=== PATIENT | female | born 1950 | race Caucasian/White ===

== ENCOUNTER 2017-03-20 14:00 | Outpatient (RCR) ==
[2013-03-05 17:57] VITALS: BMI 30.4
--- NOTE | 2017-03-17 16:04 | RS.OPPTEV2 ---
Date of Note: 03/16/17 Visit #: 1 Date of Evaluation: 03/16/17 Payer Source: MEDICARE Treatment Diagnosis: Plantar Fasciits History of Condition/Mechanism of Injury:: Patient reports having plantar fasciits in both feet off and on for two years. States the left foot is doing well, right now. She has had an injection in the right foot, approximately 10 weeks ago. She has also had laser treatment, has performed heelcord and HS stretching, and has used a frozen water bottle to the bottom of the foot. She has had Power Step orthotics in her shoes for over a year. She has been using a Plantar Fasciitis Posterior Night Splint for ~ 5 weeks. Prior Level of Function.....Patient was independent with: ADL's, Self Care, Caregiving, Ambulation/Mobility, Community Integration/Access Functional Limitations: Standing, Ambulation, Community Access/Integration Current Subjective/complaints:: Patient reports right foot pain. States she has been using a night splint and she is waking up due to discomfort. She has been using it for about five weeks, and initially felt like it was helping. Reports states the injection in the right foot helped for approximately two weeks. She has performed heelcord and HS stretching, but states she may not be performing them enough. Reports lateral foot pain for the last few weeks. States left foot was found to have a bone spur, but the right foot does not. *Precautions: ALLERGIC TO ADHESIVES Medical History Medical History: Hypertension, Cancer (right eye muscles) Surgical History: Hysterectomy Surgical History Comments:: hammer toe repair left foot Smoking Status: Never smoker Hx Home Medications: meloxicam, metoprolol, montelukast, olmesartan medoxomil Patient's Goals: Her goal is to get relief of right foot pain. Pain Assessment - Pain Description Pain Location: plantar aspect of right foot Current Pain Intensity: 4/10 Worst Pain Intensity: 8/10 Functional Outcome Measure LE Functional Scale: 62 (62/80=22.5% impairment) - G Codes & Severity Modifier G Codes & Modifier: Mob current CJ. Mob goal CH Source of G Code score: LE Functional scale Observation - Observation Inspection: Right presents no bruising, scar, obvious swelling. Demonstrates swelling in the area of malleoli of bilateral LE's as socks leave impression upon removal. Gait - Gait Pattern Gait Comments: Patient ambulates independently without an assistive device with decreased heel strike on the right LE and decreased stance phase on the right. - Left Ankle ROM Comments: Left DF 5-10 degrees,with full knee extension. All else of left ankle WFL's. - Right Ankle ROM Comments: Left DF 5 degrees, with full knee extension. All else of ankle WFL's. - Left Ankle Strength Left Dorsiflexion: 5 Normal Left Plantar flexion: 5 Normal Left Eversion: 5 Normal Left Inversion: 5 Normal - Right Ankle Strength Right Dorsiflexion: 5 Normal Right Plantarflexion: 5 Normal Right Eversion: 5 Normal Right Inversion: 5 Normal Palpation Comments:: Tenderness along the medial border of the plantar fascia at the insertion site at the plantar aspect of the calcaneus. Sensation - Sensation Right Lower Extremity: Intact/Normal Left Lower Extremity: Intact/Normal Additional Comments: Additional Comments: Demonstrates optimal HS flexibility. - Treatment Modality: Ultrasound Parameters/Method Applied: 1.5 w/cm2 continuous X 8 mins to plantar fascia and plantar aspect of calcaneous. Patient Position: Sitting (w/ legs elevated on stool) Interventions - Exercise/Activities/Manual Therapy Exercises/Activities: Instructed in plantar fascia, gastroc, and soleus stretch for HEP. Advised to adjust the night splint to have minimal stretch on the ankle into DF to avoid discomfort. Manual Therapy: DTM to plantar fascia along with stretching to plantar fascia and heelcord. Total minutes of Manual Therapy: X 7-8 mins - Charges Total Direct Minutes: 60 mins Total Treatment Time: 60 mins Procedures billed for this date of service:: KVNG MCWILLIAMS, Assessment Assessment: Patient presents with diagnosis of bilateral Plantar Fasciitis. She reports right foot is priority at this time, left foot is doing better. She reports difficulty walking and standing due to right foot pain. She demonstrates decreased flexibility in right DF. Also has recent onset of lateral forefoot pain in the right foot. She demonstrates potential to benefit from stretching, manual therapy, and modalities to decrease friction on the plantar fascia and ultimately decrease her pain. Patient Education: Education of diagnosis, Body/Joint mechanics, Home Exercise Program, Home Safety, Activity Modification, Education of Plan of Care Rehab Potential: Good Short Term Goals Goal #1: Pt independent and compliant with HEP. Goal to be met by: 03/31/17 Goal #2: Right ankle DF 10 with full knee extension. Goal to be met by: 03/31/17 Goal #3: Pt will ambulate short distances with good heelstrike on right LE. Goal to be met by: 03/31/17 Correction Goals Goal #1: Pt I with HEP and home mangement of symptoms. Goal to be met by: 05/06/17 Goal #2: Score on LE functional scale improved to 72/80. Goal to be met by: 05/06/17 Goal #3: Pt able to amb. community distances with minimal right foot pain. Goal to be met by: 05/06/17 Plan - Treatment to be Provided Procedures: Therapeutic Exercises, Therapeutic Activity, Manual Therapy, Patient Education Modalities: Ultrasound/Phonophoresis, Class IV Laser, Cryotherapy, Hot Packs - Treatment Plan Frequency: 3 X week Duration: 4 weeks ORDER # VISITS AND/OR THROUGH DATE: 05/06/17 - Treatment Code (1) Right foot pain Comments: M79.671 (2) Plantar fasciitis Comments: M72.2
--- NOTE | 2017-03-20 16:27 | RS.OPPTDN ---
Subjective Date of Note: 03/17/17 Visit #: 2 Date of Evaluation: 03/16/17 Payer Source: MEDICARE Treatment Diagnosis: Plantar Fasciits Current Subjective/complaints:: Patient says that she is still having pain to the lateral side of the R foot. She says she altered her night splint so that it would not be so tight on her, which did relieve irritation. *Precautions: ALLERGIC TO ADHESIVES Pain Assessment - Pain Description Pain Location: plantar aspect of right foot Current Pain Intensity: 4/10 - Treatment Modality: Ultrasound Parameters/Method Applied: continuous @ 1.5 w/cm2 x 12 mins Treatment Area: R lateral foot and plantar fascia Patient Position: Supine - Heat/Cryotherapy Treatment: Hot Pack (over the R lateral and heel x 15 mins in supine) Interventions - Exercise/Activities/Manual Therapy Exercises/Activities: Passive stretching for R heel cords, great toe. Encouraged HEP, using frozen water bottle and/or heat. Patient educated in diagnosis and discussed lessening the stretch of her night splint to assist with better stretch with less pain. Explained consistent slow stretch over time. Total minutes of Exercise: 15 Manual Therapy: na - Charges Total Direct Minutes: 27 Total Treatment Time: 47 Procedures billed for this date of service:: hp, u/s, ex Assessment: Patient is able to experience relief today with modalities and stretches. No soreness with exercises and patient attentive to HEP and pain management at home. Patient Education: Education of diagnosis, Body/Joint mechanics, Home Exercise Program, Home Safety, Activity Modification, Education of Plan of Care Patient demonstrates compliance with HEP?: Yes Short Term Goals Goal #1: Pt independent and compliant with HEP. Goal to be met by: 03/31/17 Progress towards Goal:: Progressing Goal #2: Right ankle DF 10 with full knee extension. Goal to be met by: 03/31/17 Goal #3: Pt will ambulate short distances with good heelstrike on right LE. Goal to be met by: 03/31/17 Care Home Goals Goal #1: Pt I with HEP and home mangement of symptoms. Goal to be met by: 05/06/17 Goal #2: Score on LE functional scale improved to 72/80. Goal to be met by: 05/06/17 Goal #3: Pt able to amb. community distances with minimal right foot pain. Goal to be met by: 05/06/17 Plan PLAN OF CARE EXPIRES ON:: 05/06/17 ORDER # VISITS AND/OR THROUGH DATE: 05/06/17 PLAN: Progress Exercises Comments:: and modalities to improve pain level and gait
--- NOTE | 2017-03-20 16:41 | RS.OPPTDN ---
Subjective Date of Note: 03/20/17 Visit #: 3 Date of Evaluation: 03/16/17 Payer Source: MEDICARE Treatment Diagnosis: Plantar Fasciits Current Subjective/complaints:: Patient states her last session seemed to improve her foot pain. She does say she is having some swelling to the inside of her ankle. She reports tenderness here and to the lateral side of the foot. She did follow up with her referring MD today, which he is going to schedule her for a custom mold insert. She [facility] to get an OTC heel/arch support according to the "Dr. Owen's" assessment. *Precautions: ALLERGIC TO ADHESIVES Pain Assessment - Pain Description Pain Location: plantar aspect of right foot with swelling and tenderness to the medial aspect today Current Pain Intensity: Does not rate, but admits it is lower than last session - Treatment Modality: Ultrasound Parameters/Method Applied: Pulsed @ 0.6 w/cm2 20% x 12 mins to the R medial malleoli region, plantar fascia, heel, and along lateral edge of forefoot. Patient Position: Supine - Heat/Cryotherapy Treatment: Hot Pack (surrounding the lateral and plantar fascia x 20 mins supine ) Interventions - Exercise/Activities/Manual Therapy Exercises/Activities: Patient receives passive stretching for R heel cords, great toe. PROM for IV/EV. Encouraged ice for swelling to the medial aspect for home and discussed OTC orthotic. If it appears to help her symptoms, she wants to speak to MD about not pursuing custom mold due to expense. Total minutes of Exercise: 16 Manual Therapy: na - Charges Total Direct Minutes: 28 Total Treatment Time: 48 Procedures billed for this date of service:: hp, u/s, ex Assessment: Patient experiencing less general R ankle and foot pain at rest and with ambulation. She does present with slight swelling which is evident more so to the L medial malleoli region. Patient is able to herlinda exercise today despite swelling and express improved pain level when leaving department. Patient Education: Education of diagnosis, Body/Joint mechanics, Home Exercise Program, Home Safety, Activity Modification, Education of Plan of Care Patient demonstrates compliance with HEP?: Yes Short Term Goals Goal #1: Pt independent and compliant with HEP. Goal to be met by: 03/31/17 Progress towards Goal:: Progressing Goal #2: Right ankle DF 10 with full knee extension. Goal to be met by: 03/31/17 Progress towards Goal:: Progressing Goal #3: Pt will ambulate short distances with good heelstrike on right LE. Goal to be met by: 03/31/17 [facility]pc Goals Goal #1: Pt I with HEP and home mangement of symptoms. Goal to be met by: 05/06/17 Goal #2: Score on LE functional scale improved to 72/80. Goal to be met by: 05/06/17 Goal #3: Pt able to amb. community distances with minimal right foot pain. Goal to be met by: 05/06/17 Plan PLAN OF CARE EXPIRES ON:: 05/06/17 ORDER # VISITS AND/OR THROUGH DATE: 05/06/17 PLAN: Progress Exercises (and continue modalities)
--- NOTE | 2017-03-22 13:06 | RS.CXNS ---
Date of scheduled appointment: 03/22/17 Type: Cancel Reason for Cancel/NS: came in to inform us she is sick
== END 2017-03-23 ==
PROVIDERS: ATTEND Podiatrist
DX: M72.2 Plantar fascial fibromatosis (principal); D36.10 Benign neoplasm of peripheral nerves and autonomic nervous system, unspecified

== ENCOUNTER 2017-04-12 15:00 | Outpatient (RCR) ==
[2013-03-05 17:57] VITALS: BMI 30.4
--- NOTE | 2017-03-28 14:19 | RS.OPPTDN ---
Subjective Date of Note: 03/24/17 Visit #: 4 Date of Evaluation: 03/16/17 Payer Source: MEDICARE Treatment Diagnosis: Plantar Fasciits Current Subjective/complaints:: Patient says she is feeling better. Reporting less pain and performing stretches. Inquires how to stretch calves at home. *Precautions: ALLERGIC TO ADHESIVES Pain Assessment - Pain Description Pain Location: plantar aspect of right foot with swelling and tenderness to the medial aspect today Current Pain Intensity: Does not rate, but admits it is lower than last session - Treatment Modality: Ultrasound Parameters/Method Applied: continuous @ 1.5 w/cm2 x 6 mins, then pulsed @ 0.6 w/ cm2 x 6 mins to R heel, lateral arch and plantar fascia. Patient Position: Supine - Heat/Cryotherapy Treatment: Hot Pack (over the Lateral R foot and plantar fascia) Interventions - Exercise/Activities/Manual Therapy Exercises/Activities: Patient receives passive stretching for R heel cords, great toe. PROM for IV/EV. Began manual isometrics for PF/DF/IV/EV 2x5. Patient receives and demo standing gastroc and soleus stretching for home. Total minutes of Exercise: 13 Manual Therapy: na - Charges Total Direct Minutes: 25 Total Treatment Time: 45 Procedures billed for this date of service:: hp, u/s, ex Assessment: Patient admitting improved R foot pain through current treatment. She is able to demo correct stretching today for home heel cords and is able to herlinda manual resistance well. Patient should further improve with modalities to combate pain and therex to relieve tight tissues to carry over for home and use night time splint to further increase flexibility. Patient Education: Education of diagnosis, Body/Joint mechanics, Home Exercise Program, Home Safety, Activity Modification, Education of Plan of Care Patient demonstrates compliance with HEP?: Yes Short Term Goals Goal #1: Pt independent and compliant with HEP. Goal to be met by: 03/31/17 Progress towards Goal:: Progressing Goal #2: Right ankle DF 10 with full knee extension. Goal to be met by: 03/31/17 Progress towards Goal:: Progressing Goal #3: Pt will ambulate short distances with good heelstrike on right LE. Goal to be met by: 03/31/17 Mcfp Goals Goal #1: Pt I with HEP and home mangement of symptoms. Goal to be met by: 05/06/17 Goal #2: Score on LE functional scale improved to 72/80. Goal to be met by: 05/06/17 Goal #3: Pt able to amb. community distances with minimal right foot pain. Goal to be met by: 05/06/17 Plan PLAN OF CARE EXPIRES ON:: 05/06/17 ORDER # VISITS AND/OR THROUGH DATE: 05/06/17 PLAN: Progress Exercises
--- NOTE | 2017-03-28 14:45 | RS.OPPTDN ---
Subjective Date of Note: 03/28/17 Visit #: 5 Date of Evaluation: 03/16/17 Payer Source: MEDICARE Treatment Diagnosis: Plantar Fasciits Current Subjective/complaints:: Patient reports continued improvement with right heel pain. States she is working on HEP and is using orthotics in her shoes. *Precautions: ALLERGIC TO ADHESIVES Pain Assessment - Pain Description Pain Location: plantar aspect of right foot with tenderness at the medial aspect Current Pain Intensity: 2/10 - Treatment Modality: Ultrasound Parameters/Method Applied: [id number] at 0.6w/cm2 at 20% pulsed to the right heel, plantar surface, and behind lateral and medial malleoli prior to EX. Patient in supine. Patient Position: Supine - Heat/Cryotherapy Treatment: Hot Pack ([id number] to the right heel and along the achilles tendon prior to US and EX. Patient in supine. ) Interventions - Exercise/Activities/Manual Therapy Exercises/Activities: Patient receives passive stretching for R heel cords, great toe. PROM for IV/EV. Manual isometrics for PF, INV, and EV, multiple sets of 5reps. Reviewed standing gastroc and soleus stretching. Added standing heel cord stretch at step and ankle alphabet. Total minutes of Exercise: 15mins Manual Therapy: na HOME EXERCISE PROGRAM: Gastroc and soleus stretching in standing. Great toe flexor stretch. Isometric ankle df. Ankle alphabet. - Charges Total Direct Minutes: 27mins Total Treatment Time: 50mins Procedures billed for this date of service:: HP, US, EX Assessment: Patient reporting consistent progress with reduction in pain right heel. She is motivated to progress with HEP. Patient Education: Home Exercise Program Comments: Reviewed joint mechanics and patient given copies of new exercises. Patient demonstrates compliance with HEP?: Yes Short Term Goals Goal #1: Pt independent and compliant with HEP. Goal to be met by: 03/31/17 Progress towards Goal:: Progressing Goal #2: Right ankle DF 10 with full knee extension. Goal to be met by: 03/31/17 Progress towards Goal:: Progressing Goal #3: Pt will ambulate short distances with good heelstrike on right LE. Goal to be met by: 03/31/17 Progress towards Goal:: Progressing Halfway Goals Goal #1: Pt I with HEP and home mangement of symptoms. Goal to be met by: 05/06/17 Progress towards goal: Progressing Goal #2: Score on LE functional scale improved to 72/80. Goal to be met by: 05/06/17 Goal #3: Pt able to amb. community distances with minimal right foot pain. Goal to be met by: 05/06/17 Plan PLAN OF CARE EXPIRES ON:: 05/06/17 ORDER # VISITS AND/OR THROUGH DATE: 05/06/17 PLAN: Continue Plan of Care (Continue modalities and progress exercise to reduce pain and increase functional activity level.)
--- NOTE | 2017-03-31 15:10 | RS.OPPTDN ---
Subjective Date of Note: 03/31/17 Visit #: 6 Date of Evaluation: 03/16/17 Payer Source: MEDICARE Treatment Diagnosis: Plantar Fasciits Current Subjective/complaints:: Patient reports continued improvement in right heel pain. Reports some discomfort at the posterior-lateral heel and along the plantar fascia. States she is doing HEP as instructed. *Precautions: ALLERGIC TO ADHESIVES Pain Assessment - Pain Description Pain Location: plantar aspect of right foot with tenderness at the medial aspect Current Pain Intensity: 2/10 - Treatment Modality: Ultrasound Parameters/Method Applied: [id number] at 1.5w/cm2 to the right heel and plantar fascia prior to EX. Patient Position: Supine - Heat/Cryotherapy Treatment: Hot Pack ([id number] to the right heel prior to US and EX. Patient in supine. ) Interventions - Exercise/Activities/Manual Therapy Exercises/Activities: Patient receives passive stretching right heel cords ( gastroc and soleus), great toe. PROM for IV/EV. Manual isometrics for PF, INV , and EV, multiple sets of 5reps. Began yellow theraband for resistive df, inv, and ever. Reviewed standing heel cord stretch at step and ankle alphabet. Total minutes of Exercise: 15mins Manual Therapy: na HOME EXERCISE PROGRAM: Gastroc and soleus stretching in standing. Great toe flexor stretch. Isometric ankle df. Ankle alphabet. Yellow theraband for resistive df, inv, and eversion. - Charges Total Direct Minutes: 25mins Total Treatment Time: 45mins Procedures billed for this date of service:: HP, US, EX Assessment: Patient progressing with resistive exercise. Patient is able to walk short household distances without increasing pain. Patient Education: Home Exercise Program Patient demonstrates compliance with HEP?: Yes Short Term Goals Goal #1: Pt independent and compliant with HEP. Goal to be met by: 03/31/17 Progress towards Goal:: Met Goal #2: Right ankle DF 10 with full knee extension. Goal to be met by: 03/31/17 Progress towards Goal:: Progressing Goal #3: Pt will ambulate short distances with good heelstrike on right LE. Goal to be met by: 03/31/17 Progress towards Goal:: Progressing [facility] Goals Goal #1: Pt I with HEP and home mangement of symptoms. Goal to be met by: 05/06/17 Progress towards goal: Progressing Goal #2: Score on LE functional scale improved to 72/80. Goal to be met by: 05/06/17 Goal #3: Pt able to amb. community distances with minimal right foot pain. Goal to be met by: 05/06/17 Plan PLAN OF CARE EXPIRES ON:: 05/06/17 ORDER # VISITS AND/OR THROUGH DATE: 05/06/17 PLAN: Continue Plan of Care (Continue modalities and progress exercise to reduce pain and increase functional ambulation.)
--- NOTE | 2017-04-10 15:49 | RS.OPPTDN ---
Subjective Date of Note: 04/10/17 Visit #: 7 Date of Evaluation: 03/16/17 Payer Source: MEDICARE Treatment Diagnosis: Plantar Fasciits Current Subjective/complaints:: Patient reports she has some increase in pain since returning from vacation. Reports she did only moderate walking but did not have night splint. Reports marked drop in pain following US and EX. *Precautions: ALLERGIC TO ADHESIVES Pain Assessment - Pain Description Pain Location: plantar aspect of right foot with tenderness at the medial aspect Current Pain Intensity: 3/10 - Treatment Modality: Ultrasound Parameters/Method Applied: [id number] 20% pulsed at 1.0w/cm2 to the right heel and along the mid foot plantar surface. Patient Position: Supine - Heat/Cryotherapy Treatment: Hot Pack ([id number] to the right foot prior to US and EX. Patient in supine. ) Interventions - Exercise/Activities/Manual Therapy Exercises/Activities: Patient receives passive stretching right gastroc, soleus , and great toe flexors. Passive inversion and eversion. Manual isometrics for PF, INV, and EV, multiple sets of 5reps. Discussed HEP with no new additions today. Total minutes of Exercise: [id number] Manual Therapy: na HOME EXERCISE PROGRAM: Gastroc and soleus stretching in standing. Great toe flexor stretch. Isometric ankle df. Ankle alphabet. Yellow theraband for resistive df, inv, and eversion. - Charges Total Direct Minutes: 24mins Total Treatment Time: 44mins Procedures billed for this date of service:: HP, US, EX Assessment: Patient will benefit from resuming HEP several times per day and wearing night splint. Patient Education: Home Exercise Program Patient demonstrates compliance with HEP?: Yes Short Term Goals Goal #1: Pt independent and compliant with HEP. Goal to be met by: 03/31/17 Progress towards Goal:: Met Goal #2: Right ankle DF 10 with full knee extension. Goal to be met by: 03/31/17 Progress towards Goal:: Progressing Goal #3: Pt will ambulate short distances with good heelstrike on right LE. Goal to be met by: 03/31/17 Progress towards Goal:: Progressing [facility] Goals Goal #1: Pt I with HEP and home mangement of symptoms. Goal to be met by: 05/06/17 Progress towards goal: Progressing Goal #2: Score on LE functional scale improved to 72/80. Goal to be met by: 05/06/17 Goal #3: Pt able to amb. community distances with minimal right foot pain. Goal to be met by: 05/06/17 Progress towards goal: Progressing Plan PLAN OF CARE EXPIRES ON:: 05/06/17 ORDER # VISITS AND/OR THROUGH DATE: 05/06/17 PLAN: Progress Exercises (Continue modalities and progress exercise to reduce pain and increase functional activity level.)
--- NOTE | 2017-04-12 16:30 | RS.OPPTDN ---
Subjective Date of Note: 04/12/17 Visit #: 8 Date of Evaluation: 03/16/17 Payer Source: MEDICARE Treatment Diagnosis: Plantar Fasciits Current Subjective/complaints:: Patient reports right foot plantar fascitis pain continues to improve, but pain and the lateral border of the right foot has been aggravated. She reports she did have a fracture at this area a few years ago. Now pain is aggravated with walking longer distances in the morning. States she is going to see Dr. Henderson tomorrow and hope to have an x-ray to r/o problems. *Precautions: ALLERGIC TO ADHESIVES Pain Assessment - Pain Description Pain Location: plantar aspect of right foot with tenderness at the medial aspect Current Pain Intensity: 2/10 plantar surface after treatment - Treatment Modality: Ultrasound Parameters/Method Applied: [id number] at 1.0w/cm2 pulsed to the right heel and midfoot plantar surface and along the lateral border of the foot prior to EX. Patient Position: Supine - Heat/Cryotherapy Treatment: Hot Pack ([id number] to the right heel prior to US and EX. Patient in supine. ) Interventions - Exercise/Activities/Manual Therapy Exercises/Activities: Patient receives passive stretching right gastroc, soleus , and great toe flexors. Passive inversion and eversion. Manual isometrics for PF, INV, and EV, multiple sets of 5reps. Patient advised to resume isometrics for ankle df, inv, and eversion. Total minutes of Exercise: 15mins Manual Therapy: na HOME EXERCISE PROGRAM: Gastroc and soleus stretching in standing. Great toe flexor stretch. Isometric ankle df. Ankle alphabet. Yellow theraband for resistive df, inv, and eversion. - Charges Total Direct Minutes: 27mins Total Treatment Time: 47mins Procedures billed for this date of service:: HP, US, EX Assessment: Patient with reports of consistent improvement in plantar fascia and heel pain, but has had a flair-up of pain at the lateral foot. Patient Education: Home Exercise Program Patient demonstrates compliance with HEP?: Yes Short Term Goals Goal #1: Pt independent and compliant with HEP. Goal to be met by: 03/31/17 Progress towards Goal:: Met Goal #2: Right ankle DF 10 with full knee extension. Goal to be met by: 03/31/17 Progress towards Goal:: Progressing Goal #3: Pt will ambulate short distances with good heelstrike on right LE. Goal to be met by: 03/31/17 Progress towards Goal:: Progressing Shelter Goals Goal #1: Pt I with HEP and home mangement of symptoms. Goal to be met by: 05/06/17 Progress towards goal: Progressing Goal #2: Score on LE functional scale improved to 72/80. Goal to be met by: 05/06/17 Goal #3: Pt able to amb. community distances with minimal right foot pain. Goal to be met by: 05/06/17 Progress towards goal: Progressing Plan PLAN OF CARE EXPIRES ON:: 05/06/17 ORDER # VISITS AND/OR THROUGH DATE: 05/06/17 PLAN: Continue Plan of Care (Will continue modalities and stability exercise to reduce pain and increase patients functional ambulation.)
--- NOTE | 2017-04-14 13:43 | RS.CSNOTE ---
PT Case Note Date of Note: 04/14/17 Title of document: Stop treatment Note: Patient called to cancel appointment today. States she saw her physician today concerning the increased pain she is having in the lateral right foot. She states he put her in a walking boot and instructed her to stop therapy at this time. She reports she is pleased with her progress with treatment for plantar fascitis and will contact this department to scedule if she receives orders for treatment of lateral foot pain. Patients FOM has not changed due to increased lateral foot pain. Patient will be discharged at this time.
== END 2017-04-22 ==
PROVIDERS: ATTEND Podiatrist
DX: M72.2 Plantar fascial fibromatosis (principal)